=== PATIENT | female | born 1960 | race African-American/Black ===

== ENCOUNTER 2022-02-10 17:16 | Inpatient (IN) ==
[2022-02-10 18:37] LABS: Basophils % 0.4 % (0.0-0.8); Eosinophils # 0.1 10*3/uL (0.0-0.87); Eosinophils % 1.7 % (0.00-10.9); Hematocrit 21.5 VOL% (35.7-47.0); Immature Granulocytes % 0.4 %; Immature Granulocytes Absolute 0.03 #; Lymphocytes # 2.7 10*3/uL (1.4-4.0); Lymphocytes % 37.4 % (21.3-54.2); Mean Corpuscular HGB Conc 27.4 GM/DL (32-36); Mean Corpuscular Volume 82.7 FL (87-102); Mean Platelet Volume 9.4 FL (9.6-12.0); Monocytes # 0.6 10*3/uL (0.11-0.8); Monocytes % 8.4 % (1.7-12.7); NRBC # 0.09 10*3/uL; Neutrophils % 51.7 % (38.7-73.9); Platelet Count 282 T/CUMM (130-400); Red Cell Distribution Width 15.4 % (9.3-17.3); White Blood Count 7.2 T/CUMM (4-12)
[2022-02-10 18:47] LABS: Hemoglobin 5.9 GM/DL (12.0-16.0)
[2022-02-10 18:56] LABS: Hypochromia 1+; Platelet Estimate Adequate
[2022-02-10 19:05] LABS: Alanine Aminotransferase 19 U/L (13-56); Albumin 3.5 G/DL (3.4-5.0); Alkaline Phosphatase 39 U/L (45-117); Aspartate Amino Transferase 11 U/L (0-37); Bilirubin,Total < 0.39 MG/DL (0.20-1.00); Blood Urea Nitrogen 40 MG/DL (7-18); Calcium 8.5 MG/DL (8.5-10.1); Carbon Dioxide 25 MMOL/L (21-32); Chloride 110 MMOL/L (98-107); Estimated Glom Filtration Rate 48 ML/MIN; Glucose 183 MG/DL (74-106); Osmolality,Calculated 297.1 MOS/KG (273-304); Potassium 4.1 MMOL/L (3.5-5.1); Sodium 142 MMOL/L (136-145); Total Protein 6.8 G/DL (6.4-8.2)
[2022-02-10] MEDS ORDERED: SODIUM CHLORIDE 0.9% 1,000 ML IV STA (19:23)
[2022-02-10] MEDS ORDERED: ONDANSETRON 4 MG/2 ML VIAL IV PRN (19:53)
[2022-02-10] MEDS ORDERED: ACETAMINOPHEN 325 MG TABLET PO PRN (19:53)
[2022-02-10] MEDS ORDERED: SODIUM CHLORIDE 0.9% 1,000 ML IV PRN (19:57)
[2022-02-10] MEDS ORDERED: FUROSEMIDE 40 MG/4 ML VIAL IV SCH (20:00)
[2022-02-10] MEDS: DOCUSATE SODIUM 100 MG CAPSULE PO SCH (21:55)
[2022-02-11] MEDS ORDERED: GABAPENTIN 400 MG CAPSULE PO ONE (01:56)
[2022-02-11] MEDS: ACETAMINOPHEN 325 MG TABLET PO PRN (02:14)
[2022-02-11 07:11] LABS: Hemoglobin 8.1 GM/DL (12.0-16.0)
[2022-02-11] MEDS: PANTOPRAZOLE 40 MG TABLET PO SCH (08:47)
[2022-02-11] MEDS: DOCUSATE SODIUM 100 MG CAPSULE PO SCH ×2 (08:48→20:21)
[2022-02-11 10:22] LABS: % Iron Saturation 2.8 % (18-50)
[2022-02-11] MEDS: hydroCHLOROthiazide 25 MG TABLET PO SCH (10:26)
[2022-02-11] MEDS: PIOGLITAZONE 15 MG TABLET PO SCH (10:26)
[2022-02-11] MEDS ORDERED: lisinopriL 20 MG TABLET PO SCH (10:30)
[2022-02-11] MEDS: carvediloL 12.5 MG TABLET PO SCH (16:55)
[2022-02-11] MEDS: metFORMIN 850 MG TABLET PO SCH (16:55)
[2022-02-11] MEDS ORDERED: SIMVASTATIN 20 MG TABLET PO SCH (17:00)
[2022-02-11] MEDS ORDERED: GABAPENTIN 300 MG CAPSULE PO SCH (21:00)
[2022-02-12] MEDS: ACETAMINOPHEN 325 MG TABLET PO PRN ×2 (01:03→05:04)
[2022-02-12 05:23] LABS: Alanine Aminotransferase 19 U/L (13-56); Albumin 3.4 G/DL (3.4-5.0); Alkaline Phosphatase 42 U/L (45-117); Aspartate Amino Transferase 15 U/L (0-37); Bilirubin,Total < 0.39 MG/DL (0.20-1.00); Blood Urea Nitrogen 31 MG/DL (7-18); Calcium 8.7 MG/DL (8.5-10.1); Carbon Dioxide 28 MMOL/L (21-32); Chloride 108 MMOL/L (98-107); Estimated Glom Filtration Rate 58 ML/MIN; Glucose 117 MG/DL (74-106); Osmolality,Calculated 290.1 MOS/KG (273-304); Potassium 4.1 MMOL/L (3.5-5.1); Sodium 142 MMOL/L (136-145); Total Protein 6.6 G/DL (6.4-8.2)
[2022-02-12 05:27] LABS: Basophils % 0.5 % (0.0-0.8); Eosinophils # 0.2 10*3/uL (0.0-0.87); Eosinophils % 2.4 % (0.00-10.9); Hematocrit 29.9 VOL% (35.7-47.0); Hemoglobin 8.7 GM/DL (12.0-16.0); Immature Granulocytes % 0.4 %; Immature Granulocytes Absolute 0.03 #; Lymphocytes # 2.7 10*3/uL (1.4-4.0); Lymphocytes % 33.7 % (21.3-54.2); Mean Corpuscular HGB Conc 29.1 GM/DL (32-36); Mean Corpuscular Volume 81.5 FL (87-102); Mean Platelet Volume 9.6 FL (9.6-12.0); Monocytes # 0.6 10*3/uL (0.11-0.8); Monocytes % 8.1 % (1.7-12.7); NRBC # 0.03 10*3/uL; Neutrophils % 54.9 % (38.7-73.9); Platelet Count 289 T/CUMM (130-400); Red Cell Distribution Width 17.2 % (9.3-17.3); White Blood Count 7.9 T/CUMM (4-12)
[2022-02-12 05:28] LABS: Red Blood Count 3.67 MC/CUMM (3.8-5.5)
[2022-02-12 05:39] LABS: Hypochromia 1+; Microcytosis 1+; Ovalocytes Slight; Platelet Estimate Normal; Polychromasia Slight
[2022-02-12 08:26] VITALS: BP 159/84
[2022-02-12] MEDS ORDERED: MAGNESIUM OXIDE 400 MG TABLET PO SCH (09:00)
[2022-02-12] MEDS: PIOGLITAZONE 15 MG TABLET PO SCH (09:26)
[2022-02-12] MEDS: carvediloL 12.5 MG TABLET PO SCH (09:26)
[2022-02-12] MEDS: hydroCHLOROthiazide 25 MG TABLET PO SCH (09:26)
[2022-02-12] MEDS: PANTOPRAZOLE 40 MG TABLET PO SCH (09:26)
[2022-02-12] MEDS: DOCUSATE SODIUM 100 MG CAPSULE PO SCH (09:26)
[2022-02-12] MEDS: metFORMIN 850 MG TABLET PO SCH (09:30)
[2022-02-15] MEDS ORDERED: BISACODYL 5 MG TABLET PO ONE (12:00)
[2022-02-15] MEDS ORDERED: POLYETHYLENE GLYCOL POWDER 255 GM BOTTLE PO ONE (18:00)
== END 2022-02-12 11:00 | disposition home or self-care (01) | DRG 812 ==
LOC: N.ED 17:16 → N.EDINP 17:16 → N.5E 21:34 → UNDODISOB 02-12 11:00
PROVIDERS: ADMIT Family Medicine; ATTEND Family Medicine